=== PATIENT | female | born 1950 | race Caucasian/White ===

== ENCOUNTER 2016-06-25 16:13 | Emergency (ER) | payer MEDICARE, BC ==
[~2016-06-25] VITALS: Ht 162.6 cm; Wt 60.0 kg
[~2016-06-25 16:13] MED LIST: KEPPRA PO; KEPPRA1000 MG PO; LAMICTAL; VIMPAT200 MG PO; ZOLOFT 50MG50 MG PO
[2016-06-25 16:25] VITALS: BP 152/79; TEMP 97.9
[2016-06-25] MEDS ORDERED: XANAX .25M0.25 MG/TA PO (18:25)
[2016-06-25] MEDS ORDERED: INDERAL 20MG20 MG PO (18:34)
[2016-06-25] MEDS ORDERED: ULTRAM 50MG TAB50 MG PO (18:55)
[2016-06-25 19:09] VITALS: PULSE 61
== END 2016-06-25 19:10 | disposition home or self-care (01) ==
LOC: COL.ER 16:13
DX: S22.41XA Multiple fractures of ribs, right side, initial encounter for closed fracture (principal); W01.190A Fall on same level from slipping, tripping and stumbling with subsequent striking against furniture, initial encounter; Y92.009 Unspecified place in unspecified non-institutional (private) residence as the place of occurrence of the external cause; Z85.841 Personal history of malignant neoplasm of brain; R56.9 Unspecified convulsions; R27.0 Ataxia, unspecified; Z91.81 History of falling
CPT/HCPCS: A9284; J1885

== ENCOUNTER 2018-02-21 10:43 | Emergency (ER) | payer MEDICARE, BC ==
[~2018-02-21] VITALS: Ht 162.6 cm; Wt 60.0 kg
[~2018-02-21 10:43] MED LIST changes: +FYCOMPA2 MG PO; +INDERAL 20MG20 MG PO; +LAMICTAL200 MG PO; +MOTRIN 600600 MG/TAB PO; +TYLENOL W/COD1 UDTAB PO; +ULTRAM 50MG TAB50 MG PO; +VITAMIN D31000 I1 PO; +XANAX .25M0.25 MG/TA PO
[2018-02-21 10:55] VITALS: BP 136/63; TEMP 97.3
[2018-02-21 12:03] LABS: COLLECTION METHOD CLEAN CATCH
[2018-02-21 12:13] LABS: MUCOUS Present /lpf; PH 9 (5-8); SQUAMOUS EPITHELIAL 0-2 /hpf; URINE APPEARANCE Clear; URINE BACTERIA None Seen /hpf; URINE BILIRUBIN Negative (NEGATIVE); URINE BLOOD Negative (NEGATIVE); URINE COLOR Straw; URINE GLUCOSE Negative (NEGATIVE); URINE KETONE Negative (NEGATIVE); URINE LEUKOCYTE ESTERASE Negative (NEGATIVE); URINE NITRATE Negative (NEGATIVE); URINE PROTEIN(semi-quant) Negative (NEGATIVE); URINE RBC 0-2 /hpf; URINE UROBILINOGEN Negative (NEGATIVE)
[2018-02-21 12:58] LABS: BASO % 0.7 % (0.0-2.0); EOS % 0.7 % (0-4.0); GRAN # 2.7 (1.4-6.5); GRAN % 61.7 % (42.2-75.2); HEMATOCRIT 34.1 % (37.0-47.0); HEMOGLOBIN 11.8 g/dl (12.5-16.0); LYMPH # 1.2 (1.2-3.4); LYMPH % 27.9 % (20.0-51.0); MEAN CELL VOLUME 95 fl (80.0-100.0); MEAN CORPUSCULAR HEMOGLOBIN 33 pg (27.0-31.0); MEAN CORPUSCULAR HGB CONC 35 g/dl (33.0-37.0); MEAN PLATELET VOLUME 8.9 fl (7.4-10.4); MONO # 0.4 (0.1-0.6); MONO % 8.8 % (1.7-9.3); PLATELET COUNT 162 K/mm3 (130-400); RED BLOOD COUNT 3.59 M/mm3 (4.10-5.30)
[2018-02-21 13:08] LABS: ALBUMIN 3.9 gm/dL (3.5-5.0); BILIRUBIN,TOTAL 0.4 mg/dL (0.0-1.0); CALCIUM 9.3 mg/dL (8.4-10.2); CREATININE, serum 0.9 mg/dL (0.52-1.25); POTASSIUM 3.9 mmol/L (3.4-5.0); TOTAL PROTEIN 6.1 gm/dL (6.4-8.2)
[2018-02-21 13:24] LABS: PROLACTIN 10.9 ng/mL (3.0-18.6)
[2018-02-21 15:55] VITALS: PULSE 78
== END 2018-02-21 15:55 | disposition short-term general hospital (02) ==
LOC: COL.ER 10:43
PROVIDERS: Emergency Medicine
DX: G40.909 Epilepsy, unspecified, not intractable, without status epilepticus (principal)
CPT/HCPCS: J1953; J2060; J7030

== ENCOUNTER 2018-03-02 10:50 | Emergency (ER) | payer MEDICARE, BC ==
[~2018-03-02] VITALS: Ht 162.6 cm; Wt 59.1 kg
[2018-03-02 11:04] VITALS: TEMP 97.4
[2018-03-02 11:36] LABS: BASO % 0.6 % (0.0-2.0); EOS # 0.1 (0.0-0.7); EOS % 0.9 % (0-4.0); GRAN # 3.5 (1.4-6.5); GRAN % 65.5 % (42.2-75.2); HEMATOCRIT 38.8 % (37.0-47.0); HEMOGLOBIN 13.2 g/dl (12.5-16.0); LYMPH # 1.3 (1.2-3.4); LYMPH % 24.3 % (20.0-51.0); MEAN CELL VOLUME 94 fl (80.0-100.0); MEAN CORPUSCULAR HEMOGLOBIN 32 pg (27.0-31.0); MEAN CORPUSCULAR HGB CONC 34 g/dl (33.0-37.0); MEAN PLATELET VOLUME 9.1 fl (7.4-10.4); MONO # 0.4 (0.1-0.6); MONO % 8.3 % (1.7-9.3); PLATELET COUNT 192 K/mm3 (130-400); RED BLOOD COUNT 4.11 M/mm3 (4.10-5.30)
[2018-03-02 11:41] LABS: ALBUMIN 4.7 gm/dL (3.5-5.0); BILIRUBIN,TOTAL 0.4 mg/dL (0.0-1.0); CALCIUM 10.2 mg/dL (8.4-10.2); CREATININE, serum 0.84 mg/dL (0.52-1.25); POTASSIUM 4.3 mmol/L (3.4-5.0); TOTAL PROTEIN 7.4 gm/dL (6.4-8.2)
[2018-03-02] MEDS ORDERED: ONFI 10MG PO ×2 (12:12→12:13)
[2018-03-02] MEDS ORDERED: VIMPAT50 MG PO (12:12)
[2018-03-02 12:30] VITALS: BP 117/76; PULSE 62
[2018-03-02 12:53] LABS: PROLACTIN 12.7 ng/mL (3.0-18.6)
== END 2018-03-02 13:01 | disposition short-term general hospital (02) ==
LOC: COL.ER 10:50
PROVIDERS: Emergency Medicine
DX: G40.919 Epilepsy, unspecified, intractable, without status epilepticus (principal)
CPT/HCPCS: J2060; J7030

== ENCOUNTER 2018-03-07 07:32 | Emergency (ER) | payer MEDICARE, BC ==
[~2018-03-07] VITALS: Ht 162.6 cm; Wt 59.1 kg
[~2018-03-07 07:32] MED LIST changes: +ONFI 10MG PO; +VIMPAT50 MG PO
[2018-03-07 07:36] VITALS: BP 138/75; TEMP 97.1
[2018-03-07 08:25] LABS: BASO % 0.4 % (0.0-2.0); EOS # 0.1 (0.0-0.7); EOS % 1.5 % (0-4.0); GRAN # 2.6 (1.4-6.5); GRAN % 56.7 % (42.2-75.2); HEMOGLOBIN 12.8 g/dl (12.5-16.0); LYMPH # 1.4 (1.2-3.4); LYMPH % 31.5 % (20.0-51.0); MEAN CELL VOLUME 92 fl (80.0-100.0); MEAN CORPUSCULAR HEMOGLOBIN 32 pg (27.0-31.0); MEAN CORPUSCULAR HGB CONC 35 g/dl (33.0-37.0); MONO # 0.4 (0.1-0.6); MONO % 9.7 % (1.7-9.3); PLATELET COUNT 178 K/mm3 (130-400); RED BLOOD COUNT 4.01 M/mm3 (4.10-5.30); REDCELL DISTRIBUTION WIDTH-CV 11.8 % (11.5-14.5)
[2018-03-07 08:29] LABS: HEMATOCRIT 36.8 % (37.0-47.0)
[2018-03-07 08:35] LABS: ALBUMIN 4.2 gm/dL (3.5-5.0); BILIRUBIN,TOTAL 0.4 mg/dL (0.0-1.0); CALCIUM 9.2 mg/dL (8.4-10.2); CREATININE, serum 0.78 mg/dL (0.52-1.25); POTASSIUM 3.9 mmol/L (3.4-5.0); TOTAL PROTEIN 6.6 gm/dL (6.4-8.2)
[2018-03-07] MEDS ORDERED: OS-CAL 500 + D1 TAB PO (08:49)
[2018-03-07] MEDS ORDERED: PROLIA60 MG/ML SQ (08:56)
[2018-03-07] MEDS ORDERED: MOTRIN 600600 MG/TAB PO (08:57)
[2018-03-07] MEDS ORDERED: ATIVAN 1MG T1 MG/TAB PO (09:51)
[2018-03-07 10:45] VITALS: PULSE 66
== END 2018-03-07 11:49 | disposition home or self-care (01) ==
LOC: COL.ER 07:32
PROVIDERS: Emergency Medicine
DX: G40.909 Epilepsy, unspecified, not intractable, without status epilepticus (principal)
CPT/HCPCS: J1953; J2060

== ENCOUNTER 2018-08-23 13:41 | Outpatient (RCR) | payer MEDICARE, BC ==
[~2018-08-23] VITALS: Ht 162.6 cm; Wt 65.4 kg
[~2018-08-23 13:41] MED LIST changes: +ATIVAN 1MG T1 MG/TAB PO; +OS-CAL 500 + D1 TAB PO; +PROLIA60 MG/ML SQ
[2018-08-23] MEDS ORDERED: DECADRON 4MG TAB4 MG PO (14:11)
[2018-08-23 15:00] VITALS: BP 104/71; PULSE 77; TEMP 97.9
== END 2018-08-23 17:00 | disposition home or self-care (01) ==
LOC: EUO 13:41
DX: M81.0 Age-related osteoporosis without current pathological fracture (principal)
CPT/HCPCS: J0897

== ENCOUNTER 2019-10-30 02:40 | Emergency (ER) | payer MEDICARE, BC ==
[~2019-10-30] VITALS: Ht 162.6 cm; Wt 61.8 kg
[~2019-10-30 02:40] MED LIST changes: +DECADRON 4MG TAB4 MG PO
[2019-10-30 02:45] VITALS: TEMP 97.8
[2019-10-30 03:44] LABS: BASO % 0.7 % (0.0-2.0); EOS # 0.3 (0.0-0.7); GRAN # 3.8 (1.4-6.5); GRAN % 68.3 % (42.2-75.2); HEMATOCRIT 37.2 % (37.0-47.0); HEMOGLOBIN 12.4 g/dl (12.5-16.0); LYMPH # 0.8 (1.2-3.4); LYMPH % 14.8 % (20.0-51.0); MEAN CELL VOLUME 94 fl (80.0-100.0); MEAN CORPUSCULAR HEMOGLOBIN 31 pg (27.0-31.0); MEAN CORPUSCULAR HGB CONC 33 g/dl (33.0-37.0); MONO # 0.5 (0.1-0.6); MONO % 9.8 % (1.7-9.3); PLATELET COUNT 190 K/mm3 (130-400); RED BLOOD COUNT 3.95 M/mm3 (4.10-5.30); REDCELL DISTRIBUTION WIDTH-CV 12.6 % (11.5-14.5)
[2019-10-30 03:55] LABS: ALANINE AMINOTRANSFERASE 15 U/L (4-34); ALBUMIN 4.3 gm/dL (3.5-5.0); ALKALINE PHOSPHATASE 41 U/L (50-136); ANION GAP 6 mmol/L (7-16); AST,SGOT 25 U/L (15-37); BILIRUBIN,TOTAL 0.4 mg/dL (0.0-1.0); BLOOD UREA NITROGEN 12 mg/dL (7-17); CALCIUM 9.1 mg/dL (8.4-10.2); CARBON DIOXIDE 28 mmol/L (22-30); CHLORIDE 104 mmol/L (98-107); CREATININE, serum 0.69 (0.52-1.25); GLUCOSE 124 mg/dL (74-106); MAGNESIUM 2.1 mg/dL (1.6-2.3); POTASSIUM 3.6 mmol/L (3.4-5.0); SODIUM 139 mmol/L (137-145); TOTAL PROTEIN 6.5 gm/dL (6.4-8.2)
[2019-10-30 04:01] LABS: C-REACTIVE PROTEIN < 0.5 mg/dL (0.0-0.9)
[2019-10-30 04:09] LABS: ERYTHROCYTE SEDIMENTATION RATE 1 mm/hr (0-30)
[2019-10-30] MEDS ORDERED: DECADRON 1MG TAB1 MG PO (05:44)
[2019-10-30] MEDS ORDERED: NORCO 325 MG-51 TAB PO (05:45)
[2019-10-30 06:00] VITALS: BP 151/83; PULSE 73
== END 2019-10-30 06:03 | disposition home or self-care (01) ==
LOC: COL.ER 02:40
PROVIDERS: Emergency Medicine
DX: M79.651 Pain in right thigh (principal); R56.9 Unspecified convulsions; Z79.52 Long term (current) use of systemic steroids
CPT/HCPCS: J1100; J1170; J3010

== ENCOUNTER → 2021-03-25 | Outpatient (CLI) | payer MEDICARE, BC ==
[~2021-03-25] MED LIST changes: +DECADRON 1MG TAB1 MG PO; +NORCO 325 MG-51 TAB PO
== END ==
LOC: MC.RAD 11:15
DX: Z12.31 Encounter for screening mammogram for malignant neoplasm of breast (principal)

== ENCOUNTER 2021-07-21 11:15 | Outpatient (RCR) | payer MEDICARE, BC | END 2021-08-09 | disposition still patient (30) | LOC: WSPT | DX: R26.0 Ataxic gait (principal); R26.89 Other abnormalities of gait and mobility ==

== ENCOUNTER → 2021-09-08 | Outpatient (RCR) | payer MEDICARE, BC | END | disposition home or self-care (01) | LOC: WSPT → WSC 08-16 11:15 → WSPT 08-18 11:15 | DX: R26.0 Ataxic gait (principal); R26.89 Other abnormalities of gait and mobility ==

== ENCOUNTER 2021-10-04 12:45 | Outpatient (RCR) | payer MEDICARE, BC | END 2021-10-09 | disposition home or self-care (01) | LOC: WSC | DX: R26.89 Other abnormalities of gait and mobility (principal); R26.0 Ataxic gait ==

== ENCOUNTER 2021-11-08 09:00 | Outpatient (RCR) | payer MEDICARE, BC | END 2021-11-09 | disposition home or self-care (01) | LOC: WSC | DX: R26.0 Ataxic gait (principal); R26.89 Other abnormalities of gait and mobility ==

== ENCOUNTER → 2021-11-17 | Outpatient (CLI) | payer MEDICARE, BC | LOC: MHCPAIN 15:00 | DX: M54.16 Radiculopathy, lumbar region (principal); M47.816 Spondylosis without myelopathy or radiculopathy, lumbar region; M43.16 Spondylolisthesis, lumbar region; M70.62 Trochanteric bursitis, left hip | CPT/HCPCS: G0463 ==

== ENCOUNTER 2024-01-01 15:01 | Outpatient (CLI) | payer MEDICARE, BC ==
[~2024-01-01] VITALS: Ht 162.6 cm; Wt 66.0 kg
[~2024-01-01 15:01] MED LIST changes: +LYRICA 150MG C150 MG PO; +SINEMET 25/101 UDTAB PO
[2024-01-01 15:30] VITALS: BP 138/71; PULSE 55; TEMP 98.4
[2024-01-01] MEDS ORDERED: Denosumab 60 MG/ML SYRINGE SQ ONE (15:30)
[2024-01-01] MEDS ORDERED: PROPECIA1 MG PO (15:33)
== END 2024-01-01 15:38 | disposition home or self-care (01) ==
LOC: EUO 15:01
DX: M81.0 Age-related osteoporosis without current pathological fracture (principal)
CPT/HCPCS: J0897